=== PATIENT | female | born 1955 | race Caucasian/White ===

== ENCOUNTER 2025-01-23 14:25 | Outpatient (AMB) | payer MEDICARE, OTHER, SELFPAY ==
--- NOTE | 2025-01-23 14:26 | MHC.OFFVIS ---
Vital Signs 01/23/25 14:28 Height 5 ft 4.57 in Weight 126 lb 6 oz BMI 21.3 BP 90/58 L Blood Pressure Location Lt brachial Position Sitting Pulse 73 Pulse Source Pulse Oximeter Pulse Oximetry (%) 95 Oxygen Delivery Method Room Air Intake Visit Reasons: Cough Allergies No Known Allergies Allergy (Verified 01/23/25 14:32) HPI HPI Cough: Details: Yael is a pleasant 69 year old female, former 15 pack year smoker quit 30+ years ago with underlying LUIS on CPAP ([facility]) and Rheumatoid arthritis on MTX ([facility]). She was referred by PCP for pulmonary evaluation for cough. She reports cough developed in September 2024 with associated URI symptoms, that had persisted despite antibiotics and Tessalon Perles. Cough initially was productive in nature however has had complete resolution of symptoms. She denies any respiratory symptoms at this time. She is quite active and is not limited by respiratory symptoms. She denies any history of recurrent respiratory infections. She does report a history of childhood asthma and has not had symptoms since. She denies any occupational exposures. She denies any pertinent family history. She is under the care of [facility] sleep medicine and compliant with CPAP therapy. [facility] Social History (Updated 01/23/25 @ 14:32 by Alana Garcia [facility]) Patient Tobacco Use Status: Former Tobacco user Review of Systems Const Denies chills, Denies excessive sweating, Denies fever(s), Denies headache(s) and Denies night sweats Eyes Denies dry eyes, Denies irritation and Denies itchy eyes ENT Reports Normal hearing present, Denies headache(s), Denies nasal congestion, Denies nasal discharge, Denies post nasal drip and Denies sore throat Card Denies chest pain, Denies chest pain at rest, Denies chest pain with activity, Denies claudication, Denies leg edema, Denies dyspnea, Denies dyspnea on exertion, Denies orthopnea and Denies paroxysmal nocturnal dyspnea Resp Denies chest congestion, Denies cough, Denies excessive phlegm production, Denies pain on inspiration, Denies pain with cough, Denies dyspnea, Denies dyspnea on exertion, Denies stridor and Denies wheezing Musc Denies myalgias Neuro Reports Normal hearing present and Denies headache(s) Endo Denies excessive sweating Rod/Lymph Denies lymphadenopathy Aller/Immun Denies itchy eyes, Denies seasonal rhinorrhea and Denies wheezing Physical Exam Vital Signs: Last Vital Signs Pulse 73 01/23/25 14:28 BP 90/58 L 01/23/25 14:28 Pulse Ox 95 01/23/25 14:28 Oxygen Delivery Method Room Air 01/23/25 14:28 BMI result Body Mass Index 21.3 Const General: cooperative, healthy appearing, comfortable, no acute distress, well developed and alert Orientation/consciousness: patient oriented x3 Limitations: no limitations HEENT Head: Yes normal to inspection, Yes normocephalic and Yes atraumatic Ears: hearing grossly normal bilaterally and external ears normal Eyes General: appearance normal, both eyes and all related structures Eyelids: Yes eyelids normal Sclerae: sclerae normal EOM: EOMs intact bilaterally Neck Neck: Yes normal visual inspection and Yes no lymphadenopathy Lymphatic: no lymphadenopathy noted Chest Chest palpation & inspection: normal inspection of the chest Resp Effort & Inspection: normal respiratory effort, able to speak in complete sentences, no audible wheezes, no cough, no stridor, not tachypneic, no tripod positioning and no use of accessory muscles Auscultation: clear to auscultation bilaterally Cardio Jugular venous distension: no JVD Rate: regular rate Rhythm: regular rhythm Skin Other: warm, dry General skin exam: no rashes or lesions noted Neuro General: patient oriented x3 Cranial nerves: Yes Normal hearing present Cognition (Neuro): normal cognition Gait exam (Neuro): Normal gait present Extrem General: Yes normal to inspection, Yes capillary refill normal, Yes no clubbing, cyanosis or edema and Yes no pedal edema Psych Appearance: grossly normal and well kempt Speech and movement: Normal speech and movement present and Clear speech present Affect: normal affect Attitude: cooperative Thought process: Normal thought process present Thought content: Normal thought content present Insight: Good insight present (Psych) Judgement: Good judgement present (Psych) Assessment & Plan Assessment & Plan (1) Reactive airway disease: Code(s): J45.909 - Unspecified asthma, uncomplicated Category: Medical Plan Yael presents for pulmonary evaluation for subacute cough after URI in September despite abx. She reports cough lingered for 6-8 weeks post abx but has since resolved and denies any other respiratory symptoms. She does report a h/o childhood asthma, may have some degree of RAD associated with URI. Since symptoms are controlled at this time, will defer further testing or treatments. If reoccurs or symptoms change she is aware to call office and would consider PFT. All questions were answered and patient is in agreement of plan. Will follow-up as needed. Coding Level of Care Code New Pt Level 3 (33560) Diagnoses Reactive airway disease J45.909
[2025-01-23 14:28] VITALS: BP 90/58; PULSE 73; O2SAT 95; BMI 21.3
--- OUTSIDE RECORDS SUMMARY | 2025-01-23 14:49 | XMS_ITS | Referral Summary ---
Author Organization [facility] Address [address] [place] [address] Care Team Providers Care Meteorological Technician Name Role Phone Vanessa Marques Primary Care Provider [phone] Encounters Date Type Department Care Team Description 01/21/2025 Refill [facility] [address] [place], [place] [id number] [place]: Elisa Vargas MD 12/23/2024 Refill [facility] [address] [place] [id number] [place]: Elisa Vargas MD Inflammatory arthritis; High risk medication use; Rheumatoid arthritis of multiple sites with negative rheumatoid factor (HCC); Immunosuppression due to drug therapy (HCC) 10/29/2024 4:20 PM EDT Follow-Up [facility] [address] [place] [phone] [place]: Elisa Vargas MD Inflammatory arthritis (Primary Dx); Rheumatoid arthritis of multiple sites with negative rheumatoid factor (HCC); High risk medication use; Immunosuppression due to drug therapy (HCC) from Last 3 Months Allergies No known active allergies Medications LORazepam (ATIVAN) 0.5 mg tablet SMARTSI Tablet(s) By Mouth Every Night Active folic acid (FOLVITE) 1 mg tablet Take 1 tablet (1 mg total) by mouth once a day. 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 mg/L Negative RF, HAKAN, CCP Synovitis wrists, right hand Hand xrays:Osteoarthritis Jul 2023 methotrexate 10 mg weekly Social History Tobacco Use Types Packs/Day Years Used Date Smoking Tobacco: Former Cigarettes Passive Smoke Exposure: Past Smokeless Tobacco: Never Tobacco Cessation:Counseling Given: Not Answered Alcohol Use Standard Drinks/Week Comments Yes 0 (1 standard drink = 0.6 oz pur e alcohol) socially Comments Unknown Sex and Gender Information Value Date Recorded Sex Assigned at Female 07/06/2023 1:42 PM EST Legal Sex Female 4:41 PM EDT Gender Identity Female 07/06/2023 1:42 PM EST Sexual Orientation Straight 07/06/2023 1: 42 PM EST Last Filed Vital Signs Vital Sign Reading Time Taken Comments Blood Pressure 107/73 10/29/2024 4:24 PM EDT Pulse 67 10/29/2024 4:24 PM EDT Temperature 36.8 C (98.2 F) 10/29/2024 4:24 PM EDT Respiratory Rate - - Oxygen Saturation - - Inhaled Oxygen Concentration - - Weight 59 kg (130 lb) 10/29/2024 4:24 PM EDT Height 167.6 cm (5' 6 ) 10/29/2024 4:24 PM EDT Body Mass Index 20.98 10/29/2024 4:24 PM EDT Plan of Treatment Upcoming Encounters Date Type Department Care Team (Late st Contact Info) Description 02/05/2025 1:00 PM EDT Office Visit [facility] [address] [place] [phone] [place]: Nicola Moore NP [address] [place] [phone] Procedures * Due to [place] [employer] law, this organization might not be sharing negative HIV tests. Procedure Name Priority Date/Time Associated Diagnosis Comments HEPATITIS C ANTIBODY W/REFLEX TO HCV RNA, QUANTITATIVE PCR Routine 07/10/2023 5:59 PM EST Inflammatory arthritis from Last 3 Months or Most Recently Relevant to Health Maintenance Results * Due to [place] [employer] law, this organization might not be sharing negative HIV tests. * Hepatitis C Antibody w/Reflex to HCV RNA, Quantitative PCR (07/10/2023 5:59 PM EST) Hepatitis C Antibody NON-REACT ANGELINA NON-REACT ANGELINA 07/11/2023 2:05 AM EST [facility] Comment: HCV antibody was non-reactive. There is no laboratory evidence of HCV infection. In most cases, no further action is required. However, if recent HCV exposure is suspected, a test for HCV RNA (test code 36304) is suggested. For additional information please refer to http://education.Numerate.TribaLearning/faq/XQN84v2 (This link is being provided for informational/ educational purposes only.) Blood Structure of peripheral vein / Unknown Venipuncture / Unknown 07/10/2023 5:59 PM EST 07/10/2023 6:17 PM EST Narrative [facility] - 07/11/2023 2:05 AM EST [facility] Received Date: us Elisa Hayes MD LAB BLOOD ORDERABLES Final Resul t [facility] [address], [place] [address], [place] [phone] [facility] [address], [place] [address], [place] [phone] from Last 3 Months or Most Recently Relevant to Health Maintenance Insurance MEDICARE [facility] Care Teams Meteorological Technician Relationship Specialty Start Date End Date Vanessa Marques [address] [place] [address] PCP - General Internal Medicine 07/02/23
== END 2025-01-23 15:04 | disposition home or self-care (01) ==
LOC: HO.HPSW 14:25
PROVIDERS: PCP Internal Medicine; Visit Provider Nurse Practitioner Family
DX: J45.909 Unspecified asthma, uncomplicated (principal)
CPT/HCPCS: 99203

== ENCOUNTER → 2025-01-23 14:25 | Outpatient (BNVA) | payer MEDICARE, OTHER, SELFPAY | PROVIDERS: PCP Internal Medicine; Visit Provider Nurse Practitioner Family | DX: R05.2 Subacute cough (principal); J45.909 Unspecified asthma, uncomplicated; Z79.899 Other long term (current) drug therapy | CPT/HCPCS: 99202 ==